=== PATIENT | male | born 1965 | race Caucasian/White ===

== ENCOUNTER 2019-09-07 06:02 | Inpatient (IN) | payer OTHER ==
[2019-09-03 12:26] LABS: BASOPHILS % (AUTO) 0.4 % (0-1); EOSINOPHILS # (AUTO) 0.1 X10'3 (0-0.9); EOSINOPHILS % (AUTO) 2.2 % (0-6); LYMPHOCYTES # (AUTO) 1.2 X10'3 (1.1-4.8); LYMPHOCYTES % (AUTO) 19.6 % (21-51); MEAN CORPUSCULAR HGB CONC 34.3 g/dL (33.0-36.5); MEAN CORPUSCULAR VOLUME 90.4 FL (78-98); MEAN PLATELET VOLUME 10.5 FL (7.4-10.4); MONOCYTES # (AUTO) 0.5 X10'3 (0-0.9); MONOCYTES % (AUTO) 7.8 % (2-12); NEUTROPHILS # (AUTO) 4.2 X10'3 (1.8-7.7); PRE OP HEMATOCRIT 42.4 % (42.0-52.0); PRE OP HEMOGLOBIN 14.5 g/dL (14.0-17.9); PRE OP PLATELET COUNT 183 X10'3 (140-440); RED BLOOD COUNT 4.69 X10'6 (4.70-6.10); RED CELL DISTRIBUTION WIDTH 13.2 % (11.5-14.5)
[2019-09-03 12:37] LABS: ALBUMIN 3.8 G/DL (3.4-5.0); ALBUMIN/GLOBULIN RATIO 1.2 (1.1-1.5); ALKALINE PHOSPHATASE 81 IU/L (46-116); BLOOD UREA NITROGEN 13 MG/DL (7-18); BUN/CREATININE RATIO 14.1 (5.4-32.0); CALCIUM 8.6 MG/DL (8.5-10.1); CHLORIDE 105 MMOL/L (99-107); CREATININE 0.92 MG/DL (0.60-1.10); PRE OP ALT 27 U/L (30-65); PRE OP ANION GAP 6 (8-16); PRE OP AST 24 U/L (10-37); PRE OP BILIRUB, TOTAL 0.9 MG/DL (0.0-1.0); PRE OP GLUCOSE 98 MG/DL (70-104); PRE OP SODIUM 140 MMOL/L (135-145); TOTAL CARBON DIOXIDE 29.4 MMOL/L (24-32); eGFR 86 ML/MIN
[2019-09-03 13:47] LABS: LARGE PLATELETS FEW; PLATELET ESTIMATE NORMAL
[2019-09-07] VITALS (20 sets, daily range): BP systolic 99–128; BP diastolic 53–75
[~2019-09-07] VITALS: Ht 188 cm; Wt 91.0 kg
[~2019-09-07 06:02] MED LIST: COLLAGEN PO; MAGN400C PO; MULT-1085 PO; OMEG1CAP46 PO; TURM500C4 PO; cefazolin/dext.iso 2gm/100ml 100 ML IV ONE; famotidine 20mg tablet PO ONE; ringers solution, lacted 1,000 ML IV SCH; tranexamic acid inj. 880 MG in normal saline 100ml IV soln 100 ML IV ONE; vancomycin 1,500 MG in NS 500ml IV soln IV ONE
[2019-09-07] MEDS ORDERED: ROPIVAcaine 0.5% (5mg/ml) 30ml vial ONE ×2 (07:00→08:53)
[2019-09-07] MEDS ORDERED: ketorolac trometh. 30mg/ml inj. ONE (07:00)
[2019-09-07] MEDS ORDERED: sevoflurane 250ml liquid IH ONE (07:35)
[2019-09-07] MEDS ORDERED: fentaNYL/PF 50MCG/1 ML 2ML syringe ONE ×2 (07:36→08:01)
[2019-09-07] MEDS ORDERED: midazolam 2 mg/2 ml injection ONE (07:36)
[2019-09-07] MEDS ORDERED: ketamine 50mg/5ml syringe ONE (07:59)
[2019-09-07] MEDS ORDERED: ringers solution, lacted 1,000 ML IV SCH (08:38)
[2019-09-07] MEDS ORDERED: ROPIVAcaine 0.2%/PF PUMP/bolus 550 ML ADDCANAL SCH (08:38)
[2019-09-07] MEDS ORDERED: meperidine/PF 25mg/ml syringe IV PRN ×3 (08:40)
[2019-09-07] MEDS ORDERED: morphine 4 MG/ML inj SYRINge IV PRN (08:40)
[2019-09-07] MEDS ORDERED: proCHLORperazine 10 MG/2 ml inj IV PRN (08:40)
[2019-09-07] MEDS ORDERED: ondansetron/PF 4mg/2ml inj IV PRN ×2 (08:40→10:15)
[2019-09-07] MEDS ORDERED: ROPIVAcaine 0.2% (10 MG/5 ML) BOLUS INJECTION ADDCANAL PRN (08:40)
[2019-09-07] MEDS ORDERED: morphine 2 MG/ML inj. syringe IV PRN (08:40)
[2019-09-07] MEDS ORDERED: mineral oil 10ml sterile, topical TP ONE (08:52)
[2019-09-07] MEDS ORDERED: dexamethasone sod phosphate 4mg/ml inj. ONE (08:53)
[2019-09-07] MEDS ORDERED: propofol inj 20 ML IV ONE (08:53)
[2019-09-07] MEDS ORDERED: glycopyrrolate 0.2mg/ml inj ONE (08:53)
[2019-09-07] MEDS ORDERED: LIDOcaine 2% (20mg/ml) 5ml vial ONE (08:53)
[2019-09-07] MEDS ORDERED: ondansetron/PF 4mg/2ml inj ONE (08:53)
[2019-09-07] MEDS ORDERED: meperidine/PF 50mg/ml syringe ONE (10:08)
[2019-09-07] MEDS ORDERED: HYDROmorphone inj. 0.5 MG/0.5 ML DISP.SYRIN IV PRN (10:15)
[2019-09-07] MEDS ORDERED: magnesium hydroxide 30ml (MOM) UD suspension PO PRN (10:15)
[2019-09-07] MEDS ORDERED: bisacodyl 10mg suppository rectal RC PRN (10:15)
[2019-09-07] MEDS ORDERED: HYDROcodone/acetaminophen 10/325mg tab PO PRN (10:15)
[2019-09-07] MEDS ORDERED: diphenhydrAMINE 25mg capsule PO PRN ×2 (10:15)
[2019-09-07] MEDS ORDERED: acetaminophen 325mg tablet PO PRN (10:15)
[2019-09-07] MEDS ORDERED: HYDROmorphone 1 mg/ml syringe IV PRN (10:15)
[2019-09-07] MEDS ORDERED: oxyCODONE IR 5mg (immed. release) tablet PO PRN ×2 (10:15)
--- NOTE | 2019-09-07 10:31 | NUR ---
Received from OR via BED, accompanied by Anesthesiologist DR OSULLIVAN and report given by Anesthesiologist. PT DROWSY, DENIES PAIN, LEFT KNEE W/DRSG CDI, ICE PACK, SAM DRAIN W/GREEN LIGHT ILLUMINATION, ADDUCTOR CANAL CATHETER INTACT. WARMING BLANKET APPLIED FOR TEMP OF 35.9. Addendum: 09/07/19 at 1116 by Rema Aquino RN Amended: Links added.
--- NOTE | 2019-09-07 12:11 | NUR ---
Report called to receiving nurse. Transferred via BED BY JEWELL RECEIVING RN NOTIFIED OF PTS ARRIVAL, 1 BAG OF PT Belongings SENT W/PT TO ROOM 4014B. Special Issues communicated to receiving nurse. YES. Addendum: 09/07/19 at 1219 by Rema Aquino RN Amended: Links added.
[2019-09-07] MEDS ORDERED: tranexamic acid inj. 910 MG in normal saline 100ml IV soln 100 ML IV ONE (14:00)
[2019-09-07] MEDS: ceFAZolin/D5W- 1GM premix 50 ML IV SCH ×2 (17:13→23:19)
[2019-09-07] MEDS: acetaminophen 325mg tablet PO SCH ×2 (17:14→19:26)
--- NOTE | 2019-09-07 17:31 | NUR ---
Ropivicaine turned up to 8 from 6. patient states 6/10 pain, refuses po pain meds at this time.
[2019-09-07] MEDS: potassium cl 20mEq in 1/2 NS 1,000 ML IV SCH ×2 (18:14→19:20)
--- NOTE | 2019-09-07 18:14 | NUR ---
Report to Katherine FLORES
[2019-09-07] MEDS ORDERED: vancomycin/NS 1 GM ADD-VANTAGE 250 ML IV SCH (20:00)
[2019-09-07] MEDS ORDERED: sennosides 8.6mg tablet PO SCH (21:00)
[2019-09-08 02:00] VITALS: BP 105/48
[2019-09-08] MEDS: acetaminophen 325mg tablet PO SCH ×2 (02:00→07:59)
[2019-09-08] MEDS: potassium cl 20mEq in 1/2 NS 1,000 ML IV SCH (02:14)
[2019-09-08 05:59] LABS: ANION GAP 5 (8-16); CHLORIDE 108 MMOL/L (99-107); POTASSIUM 3.9 MMOL/L (3.5-5.1); SODIUM 141 MMOL/L (135-145); TOTAL CARBON DIOXIDE 27.7 MMOL/L (24-32)
[2019-09-08 06:00] VITALS: BP 104/57
[2019-09-08 06:08] LABS: BASOPHILS % (AUTO) 0.1 % (0-1); EOSINOPHILS # (AUTO) 0.1 X10'3 (0-0.9); EOSINOPHILS % (AUTO) 0.8 % (0-6); HEMATOCRIT 33.6 % (42.0-52.0); HEMOGLOBIN 11.6 g/dl (14.0-17.9); LYMPHOCYTES # (AUTO) 1.3 X10'3 (1.1-4.8); LYMPHOCYTES % (AUTO) 19.3 % (21-51); MEAN CORPUSCULAR HEMOGLOBIN 31.5 PG (27.0-31.0); MEAN CORPUSCULAR HGB CONC 34.6 g/dL (33.0-36.5); MEAN PLATELET VOLUME 10.1 FL (7.4-10.4); MONOCYTES # (AUTO) 0.5 X10'3 (0-0.9); MONOCYTES % (AUTO) 7.8 % (2-12); NEUTROPHILS # (AUTO) 4.7 X10'3 (1.8-7.7); PLATELET COUNT 126 X10'3 (140-440); RED BLOOD COUNT 3.69 X10'6 (4.70-6.10); WHITE BLOOD COUNT 6.5 X10'3 (4.5-11.0)
--- NOTE | 2019-09-08 06:17 | NUR ---
REPORT GIVEN TO MARK FOSS.
--- NOTE | 2019-09-08 06:37 | NUR ---
Patient in room [facility]THO 4014B. I have received report from MARK Murphy and had the opportunity to ask questions and assume patient care.
[2019-09-08] MEDS ORDERED: aspirin 325mg tablet PO SCH (08:30)
[2019-09-08] MEDS ORDERED: ONQPUMP ADDCANAL (08:35)
[2019-09-08] MEDS ORDERED: ASPI-1 PO (08:35)
[2019-09-08 10:00] VITALS: BP 108/54
--- NOTE | 2019-09-08 11:25 | NUR ---
DC INSTRUCTIONS GIVEN TO PT BY MARK RUBIO. PT UNDERSTANDS. PT WHEELED DOWN BY COLT IN STABLE CONDITION
[2019-09-09] MEDS ORDERED: acetaminophen 325mg tablet PO PRN (10:15)
== END 2019-09-08 11:25 | DRG 470 ==
LOC: UNDOADMIN 06:02 → PAS IN 06:02 → EDSTATUS 07:30 → PAS IN 10:14 → ORTHO 4S 12:20 → PAS IN 12:20
PROVIDERS: ADMIT Orthopaedic Surgery; ATTEND Orthopaedic Surgery
PROC: 8E0YXBZ Computer Assisted Procedure of Lower Extremity (ICD-10-PCS; 2019-09-07)
PROC: 8E0Y0CZ Robotic Assisted Procedure of Lower Extremity, Open Approach (ICD-10-PCS; 2019-09-07)
PROC: 3E0T3BZ Introduction of Anesthetic Agent into Peripheral Nerves and Plexi, Percutaneous Approach (ICD-10-PCS; 2019-09-07)
PROC: 0SRD069 Replacement of Left Knee Joint with Oxidized Zirconium on Polyethylene Synthetic Substitute, Cemented, Open Approach (ICD-10-PCS; principal; 2019-09-07 07:35)
DX: M17.32 Unilateral post-traumatic osteoarthritis, left knee (principal); D62 Acute posthemorrhagic anemia; Z79.899 Other long term (current) drug therapy
CPT/HCPCS: Z7506; Z7508; 36415; 80051; 80053; 82948; 85025; 87081; 93005; 97110; 97116; 97161; 97530; A4215; A6454; A7000; C1713; C1776; G0378; J0690; J1100; J1885; J2001; J2175; J2250; J2405; J2704; J2795; J3010; J3370; J3480; J3490; J7040; J7120